=== PATIENT | female | born 1965 | race Two or more races ===

== ENCOUNTER → 2017-02-23 | Day surgery (SDC) | payer OTHER ==
--- NOTE | 2017-02-24 08:35 | OP ---
DATE OF OPERATION: 02/23/2017 PREOPERATIVE DIAGNOSIS: Abnormal right mammography, POSTOPERATIVE DIAGNOSIS: Abnormal right mammography. PROCEDURE: Right breast stereotactic needle biopsy with clips. SURGEON: Servando Lin MD ANESTHESIA: Local. COMPLICATIONS: None. This was a sterile procedure. INDICATIONS FOR PROCEDURE: Patient had a screening mammogram that noted a 2.5- cm area of clustering microcalcifications in the lower inner right breast. My recommendation was a needle biopsy. The procedure was discussed including a need for a clip. PROCEDURE IN DETAIL: Patient was brought to [facility]. Juan Manuel Hernandez, laid prone on the Lorad table, and using the caudal approach, the calcifications was identified. There was a wide area. I chose the one clustering calcifications that were away from the vessels, and a sterile prep was obtained. A target was chosen, there was a positive stroke margin. Using Betadine and 1% lidocaine, a 10-gauge Suros device was used to take several cores from this area. Specimen radiograph showed cores with calcifications. These were handled with usual calcification protocol. A clip was deployed in the area. Hemostasis assured with direct pressure. Incision was closed with Steri-Strips. She tolerated the procedure well and left the breast imaging center in good condition. SERVANDO LIN M.D. [id number] MTDD
--- NOTE | 2017-02-24 16:20 | PATH ---
Surgical Pathology Report Patient Name: HORTENCIA WESLEY [facility]. Rec. #: [id number] /Age/Gender: 1965 (Age: 51) / F Account: [id number] Location: [facility] Taken: 02/23/2017 Received: 02/23/2017 Reported: 02/24/2017 Physicians: Caridad Gooden M.D. Specimen(s) Received A: RIGHT BREAST SPECIMEN WITH CALCIFICATIONS B: RIGHT BREAST SPECIMEN WITHOUT CALCIFICATIONS Clinical History Nonpalpable lesion Mammographic findings: Microcalcification, suspicious Final Diagnosis A. BREAST, RIGHT, WITH CALCIFICATIONS, STEREOTACTIC BIOPSY: BENIGN BREAST TISSUE SHOWING COLUMNAR CELL CHANGE WITH ASSOCIATED CALCIFICATIONS, MICROCYST FORMATION , FOCAL FEATURES SUGGESTIVE OF CYST RUPTURE WITH REACTION AND STROMAL FIBROSIS. B. BREAST, RIGHT, WITHOUT CALCIFICATIONS, STEREOTACTIC BIOPSY: BENIGN BREAST TISSUE SHOWING COLUMNAR CELL CHANGE WITH FEW ASSOCIATED CALCIFICATIONS, MICROCYST FORMATION AND STROMAL FIBROSIS. Electronically Signed Jen Cason M.D. Gross Description A. Received in formalin labeled "right breast with calcifications," is a 2.4 x 1.7 x 0.3 cm aggregate of multiple olivas-yellow, irregular to cylindrical portions of fibroadipose tissue. The formalin is filtered and the specimen is entirely submitted in one cassette. B. Received in formalin labeled "right breast without calcifications," are 7 olivas-yellow, cylindrical portions of fibroadipose tissue ranging from 1.0-1.8 cm in length and averaging 0.2 cm in diameter. The specimens are submitted in toto in one cassette. Time to formalin fixation: 5 minutes Total formalin fixation time: Approximately 10 hours. 02/23/2017 [facility]02/23/2017
== END | disposition home or self-care (01) ==
LOC: FMAMMOTONE 09:34
PROVIDERS: ATTEND Surgery
PROC: 0HBT3ZX Excision of Right Breast, Percutaneous Approach, Diagnostic (ICD-10-PCS; principal; 2017-02-23)
DX: N60.31 Fibrosclerosis of right breast (principal)
CPT/HCPCS: 19081; 87899; 88305-TC; A4648